=== PATIENT | female | born 1995 ===

== ENCOUNTER 2017-10-19 07:26 | Emergency (ER) | payer OTHER ==
[2017-10-19 07:26] VITALS: BMI 20.9
[2017-10-19] MEDS ORDERED: Tetracaine 0.5% Ophth 2 ML BOTTLE OS STA (07:45)
[2017-10-19 07:46] VITALS: RESP 18
[2017-10-19] MEDS ORDERED: Tetracaine 0.5% Ophth 2 ML BOTTLE ONE (07:46)
[2017-10-19] MEDS ORDERED: Fluorescein 1 mg Ophthalmic Strip OD ONE (07:47)
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
[2017-10-19 09:01] VITALS: BP 124/75; PULSE 77; TEMP 98; O2SAT 99
== END 2017-10-19 09:01 | disposition home or self-care (01) ==
LOC: ED 07:26
DX: S05.01XA Injury of conjunctiva and corneal abrasion without foreign body, right eye, initial encounter (principal); W22.8XXA Striking against or struck by other objects, initial encounter; Y92.9 Unspecified place or not applicable